=== PATIENT | female | born 1985 | race Caucasian/White ===

== ENCOUNTER 2022-02-02 18:09 | Inpatient (IN) ==
[2022-02-02] MEDS ORDERED: Heparin - STEMI 5,000 UNITS/ML 1 ml VIAL IV ONE (18:15)
[2022-02-02] MEDS ORDERED: Nitroglycerin 0.4 mg/hr PATCH (10 mg) TRANSDERM ONE (18:22)
[2022-02-02] MEDS ORDERED: Amiodarone IV 150 mg/3 ml VIAL ONE (18:24)
[2022-02-02 18:26] LABS: ABS Basophils 0.1 10^3/ul (0-0.2); ABS Eosinophils 0.2 10^3/ul (0-0.6); ABS Lymphocytes 2.8 10^3/ul (1.0-4.8); ABS Neutrophils 5.6 10^3/ul (1.5-7.7); Eosinophil % 1.7 %; Hematocrit 44 % (35-47); Hemoglobin 14.7 g/dL (12.0-16.0); Lymphocyte % 28.8 %; Mean Corpuscular HGB Conc 34 g/dL (31-36); Mean Corpuscular Hemoglobin 31 pg (27-31); Mean Corpuscular Volume 93 fL (80-97); Mean Platelet Volume 8.8 fL (7.4-10.4); Nucleated Red Blood Cells % 0.1; Platelet Count 398 10^3/uL (150-450); Red Cell Distribution Width 15 % (10-15); White Blood Count 9.7 10^3/uL (3.5-10.8)
[2022-02-02] MEDS ORDERED: Midazolam 5 mg/5 ml VIAL 1 mg/ml 5 ml VIAL (5 mg) ONE (18:30)
[2022-02-02] MEDS ORDERED: fentaNYL 100 mcg/2 ml 50 MCG/ML VIAL ONE ×2 (18:30→19:40)
[2022-02-02] MEDS ORDERED: Lidocaine 1% MPF 5 ML VIAL ONE (18:30)
[2022-02-02] MEDS ORDERED: Heparin 1,000 UNIT/ML 10 ml (10,000 UNITS) CATHLAB/DIALYSIS ONE ×2 (18:30→18:33)
[2022-02-02] MEDS ORDERED: Heparin 2 UNITS/ML 1000 mls 1,000 ML IV ONE ×2 (18:30→18:33)
[2022-02-02] MEDS ORDERED: nitroGLYCERIN DRIP 25,000 MCG/250 ML BTL ONE ×2 (18:30→19:38)
[2022-02-02] MEDS ORDERED: niCARdipine 0.1MG/ML IVPREMIX 20 MG/200 ML BAG IV ONE (18:31)
[2022-02-02 18:37] LABS: Activated Partial Thrombo Time 33.9 seconds (26.0-38.0); INR 0.88 (0.89-1.11)
[2022-02-02] MEDS ORDERED: Iohexol 350 (CONTRAST) 100 ML PAK IV ONE ×3 (18:56→19:52)
[2022-02-02 19:22] LABS: Albumin 4.2 g/dL (3.2-5.2); Albumin/Globulin Ratio 1.2 (1-3); Calcium 9.9 mg/dL (8.6-10.3); Globulin 3.5 g/dL (2-4); Magnesium 1.9 mg/dL (1.9-2.7); Potassium 3.8 mmol/L (3.5-5.0); Total Bilirubin 0.6 mg/dL (0.2-1.0); Total Protein 7.7 g/dL (6.4-8.9); eGFR CKD-EPI 76.7 (>60)
[2022-02-02] MEDS ORDERED: Norepinephrine 16MCG/ML BAG NS 4,000 MCG/250 ML BAG IV ONE (19:39)
[2022-02-02] MEDS ORDERED: Furosemide 40 mg/4 ml IV VIAL ONE (19:56)
[2022-02-02 20:15] LABS: POC SO2 88 %
[2022-02-02] MEDS ORDERED: Metoprolol Tartrate 5 mg VIAL 5 ml VIAL (1 mg/ml) ONE (20:20)
[2022-02-02] MEDS ORDERED: Metoprolol Tartrate 5 mg VIAL 5 ml VIAL (1 mg/ml) IV ONE (21:01)
[2022-02-02] MEDS ORDERED: nitroGLYCERIN DRIP 25,000 MCG/250 ML BTL IV SCH (22:00)
[2022-02-02] MEDS ORDERED: Ondansetron 4 mg VIAL 2 MG/ML 2 ml VIAL IV PRN (22:22)
== END 2022-02-03 03:00 | disposition short-term general hospital (02) | DRG 280 ==
LOC: ED 18:09 → ICU 19:02
PROVIDERS: ADMIT Internal Medicine; ATTEND Internal Medicine